=== PATIENT | female | born 1965 | race Caucasian/White ===

== ENCOUNTER 2018-10-21 19:54 | Emergency (ER) | payer OTHER ==
[~2018-10-21] VITALS: Ht 160 cm; Wt 99.3 kg
[2018-10-21] MEDS ORDERED: REXULTI4 MG PO (20:45)
[2018-10-21] MEDS ORDERED: LEXAPRO20 MG PO (20:46)
[2018-10-21 20:50] LABS: ABSOLUTE NEUTROPHILS 7.5 thou/uL (1.4-8.2); BASOPHILS 1.5 % (0.0-2.0); EOSINOPHILS 2.4 % (0.0-3.0); HEMOGLOBIN 14.5 gm/dL (12.0-15.0); LYMPHOCYTES 25.8 % (24.0-44.0); MCH 27.9 pg (26.0-34.0); MCV 84.7 fL (80.0-100.0); MONOCYTES 5.3 % (1.0-8.0); PLATELET COUNT 389 thou/uL (150-400); RDW 13.9 % (10.5-14.5); WBC 11.5 thou/uL (4.0-11.0)
[2018-10-21 21:00] LABS: CALCIUM 9.1 mg/dL (8.5-10.1); CREATININE 0.7 mg/dL (0.6-1.0); POTASSIUM 3.3 mmol/L (3.5-5.1)
[2018-10-21 23:00] VITALS: BP 132/72
== END 2018-10-21 23:02 | disposition home or self-care (01) ==
LOC: ER 19:54
PROVIDERS: Emergency Medicine
DX: R51 Headache (principal); I10 Essential (primary) hypertension; Z87.891 Personal history of nicotine dependence; Z88.8 Allergy status to other drugs, medicaments and biological substances